=== PATIENT | female | born 1945 | race Caucasian/White ===

== ENCOUNTER 2022-01-25 09:43 | Outpatient (CLI) | payer OTHER | END 2022-01-25 09:44 | disposition home or self-care (01) | LOC: RAD 09:43 | PROVIDERS: ATTEND Internal Medicine Critical Care Medicine | DX: R06.00 Dyspnea, unspecified (principal) | CPT/HCPCS: 71046 ==

== ENCOUNTER 2022-05-03 10:00 | Outpatient (CLI) | payer MEDICARE, BC | END 2022-05-03 10:01 | disposition home or self-care (01) | LOC: RAD 10:00 | PROVIDERS: ATTEND Internal Medicine Critical Care Medicine | DX: R06.00 Dyspnea, unspecified (principal) | CPT/HCPCS: 71046 ==